=== PATIENT | male | born 1985 | race Caucasian/White ===

== ENCOUNTER 2018-02-16 16:22 | Emergency (ER) | payer SELFPAY ==
[~2018-02-16] VITALS: Ht 180.3 cm; Wt 97.5 kg
[2018-02-16] MEDS ORDERED: SODIUM CHLORIDE 0.9% 1000ML 1,000 ML IV STA (16:33)
[2018-02-16] MEDS ORDERED: ONDANSETRON HCL INJ 2 MG/ML VIAL IV STA (16:33)
[2018-02-16] MEDS ORDERED: MORPHINE SULFATE INJ 4 MG/ML INJ IV STA (16:33)
[2018-02-16 16:46] LABS: BASOPHILS # (AUTO) 0.1 (0.0-0.1); BASOPHILS % 0.7 % (0.0-1.0); EOSINOPHILS # (AUTO) 0.1 (0.0-0.4); EOSINOPHILS % 1.7 % (0.0-6.0); HEMATOCRIT 43.8 % (38.2-49.6); HEMOGLOBIN 15.6 g/dL (14.0-18.0); LYMPHOCYTES # (AUTO) 1.7 (1.0-3.2); LYMPHOCYTES % 22.2 % (18.0-39.1); MEAN CORPUSCULAR HEMOGLOBIN 31.4 pg (28-32); MEAN CORPUSCULAR HGB CONC 35.6 g/dL (31-35); MEAN CORPUSCULAR VOLUME 88.1 fL (81-99); MONOCYTES # (AUTO) 0.5 (0.2-0.8); MONOCYTES % 7.1 % (4.4-11.3); NEUTROPHILS # (AUTO) 5.2 (2.1-6.9); NEUTROPHILS % 68.2 % (38.7-80.0); PLATELET COUNT 187 x10e3/uL (140-360); RED BLOOD COUNT 4.97 x10e6/uL (4.3-5.7)
[2018-02-16 17:01] LABS: ALANINE AMINOTRANSFERASE 33 IU/L (0-55); ALBUMIN 4.4 g/dL (3.5-5.0); ALBUMIN/GLOBULIN RATIO 1.6 (0.8-2.0); ALKALINE PHOSPHATASE 62 IU/L (40-150); AMYLASE 42 U/L (25-125); ANION GAP 12.1 mmol/L (8-16); BLOOD UREA NITROGEN 5 mg/dL (7-26); BUN/CREATININE RATIO 5 (6-25); CALCIUM 9.7 mg/dL (8.4-10.2); CARBON DIOXIDE 27 mmol/L (22-29); CHLORIDE 105 mmol/L (98-107); CREATININE, SERUM 0.96 mg/dL (0.72-1.25); EST GLOMERULAR FILTRATION RATE > 60 ML/MIN (60-); GLUCOSE 108 mg/dL (74-118); LIPASE 62 U/L (8-78); POTASSIUM 4.1 mmol/L (3.5-5.1); SODIUM 140 mmol/L (136-145)
[2018-02-16 17:25] LABS: BILIRUBIN,URINE NEGATIVE (NEGATIVE); CLARITY,URINE CLEAR (CLEAR); COLOR,URINE YELLOW (YELLOW); KETONES,URINE NEGATIVE (NEGATIVE); LEUKOCYTE ESTERASE ,URINE NEGATIVE (NEGATIVE); NITRITE,URINE NEGATIVE (NEGATIVE); PROTEIN,URINE DIPSTICK NEGATIVE (NEGATIVE); URINE UROBILINOGEN 0.2 mg/dL (0.2 - 1)
--- NOTE | 2018-02-16 18:45 | Diagnostic Imaging Report ---
EXAMINATION: PA and lateral views of the chest. COMPARISON: None CLINICAL HISTORY: Stomach pain, low blood pressure DISCUSSION: Lines/tubes: None. Lungs: The lungs are well inflated and clear. There is no evidence of pneumonia or pulmonary edema. Pleura: There is no pleural effusion or pneumothorax. Heart and mediastinum: Cardiomediastinal silhouette is unremarkable. Pulmonary vasculature is normal. Bones and soft tissues: No acute bony abnormalities. IMPRESSION: No acute cardiopulmonary abnormalities. Signed by: Dr. Dong Chopra M.D. on 02/16/2018 6:42 PM
--- NOTE | 2018-02-16 18:50 | Diagnostic Imaging Report ---
EXAMINATION: CT of the abdomen and pelvis without contrast. TECHNIQUE: Spiral CT images of the abdomen and pelvis were performed from the lung bases to the lesser trochanters. No intravenous contrast was given due to history of iodine allergy. Oral dilute Gastrografin was given. Coronal and sagittal reformatted images were obtained. COMPARISON: None available. CLINICAL HISTORY:Right upper quadrant mid abdominal pain for 5 weeks DISCUSSION: ABSENCE OF INTRAVENOUS CONTRAST DECREASES SENSITIVITY FOR DETECTION OF FOCAL LESIONS AND VASCULAR PATHOLOGY. ABDOMEN/PELVIS: LOWER THORAX: Unremarkable. HEPATOBILIARY: No focal hepatic lesions. No intra or extrahepatic biliary ductal dilation. GALLBLADDER: No radio-opaque stones or sludge. No wall thickening. SPLEEN: Mild splenomegaly, measuring 13.9 cm in AP diameter PANCREAS: No focal masses or ductal dilatation. No peripancreatic inflammatory changes, free fluid or fluid collections ADRENALS: No adrenal nodules. KIDNEYS/URETERS: No hydronephrosis, renal or ureteral stones, or contour abnormalities. No significant perinephric stranding.. PELVIC ORGANS/BLADDER: Bladder is unremarkable. No wall thickening, focal lesion or bladder calculi. Multiple pelvic phleboliths. Prostate and seminal vesicles are unremarkable. PERITONEUM/RETROPERITONEUM: No free air or fluid. LYMPH NODES: No intra-abdominal,retroperitoneal, pelvic or inguinal lymphadenopathy. VESSELS: Unremarkable for noncontrast exam. GI TRACT: No bowel dilation or evidence of obstruction. No pericolonic inflammatory changes. Appendix is identified and normal in caliber. BONES AND SOFT TISSUES: No aggressive lytic lesions. Soft tissues are unremarkable. IMPRESSION: 1. No acute abdominopelvic abnormalities. 2. Mild splenomegaly. Signed by: Dr. Dong Chopra M.D. on 02/16/2018 6:47 PM
[2018-02-16 19:32] VITALS: BP 126/88
== END 2018-02-16 19:34 | disposition home or self-care (01) ==
LOC: ER 16:22
DX: R10.11 Right upper quadrant pain (principal); R10.33 Periumbilical pain; R11.0 Nausea
CPT/HCPCS: 36415; 71046; 74176; 80053; 81001; 82150; 83690; 85025; 87086; 99284; J7030; J2270; J2405

== ENCOUNTER 2018-12-13 17:33 | Emergency (ER) | payer BC ==
[~2018-12-13] VITALS: Ht 180.3 cm; Wt 97.5 kg
--- OUTSIDE RECORDS SUMMARY | 2018-12-13 17:36 | XMS REPORT ---
Author [facility] Address Unknown Phone Unavailable Care Team Providers Care Team Leader Surgery Name Role Phone Gideon BLANCO Unavailable Unavailable Problems This patient has no known problems. Allergies, Adverse Reactions, Alerts This patient has no known allergies or adverse reactions. Medications This patient has no known medications. Results Test Description Test Time Test Comments Text Results Atomic Results Result Comments CT ABDOMEN/PELVIS WO 2018-02-16 18:42:00 [place] [address] Patient Name: REY CARLSON MR #: [id number] : 1985 Age/Sex: 32/M Req #: [id number] Adm Physician: Ordered by: KISHOR MARLEY SALES REPRESENTATIVE ADDING MACHINES Report #: [id number] Location: ER Room/Bed: Procedure: [id number] CT/CT ABDOMEN/PELVIS WO Exam Date: 02/16/18 Exam Time: 5 REPORT STATUS: Signed EXAMINATION: CT of the abdomen and pelvis without contrast. TECHNIQUE: Spiral CT images of the abdomen and pelvis were performed from the lung bases to the lesser trochanters. No intravenous contrast was given due to history of iodine allergy. Oral dilute Gastrografin was given. Coronal and sagittal reformatted images were obtained. COMPARISON: None available. CLINICAL HISTORY:Right upper quadrant mid abdominal pain for 5 weeks DISCUSSION: ABSENCE OF INTRAVENOUS CONTRAST DECREASES SENSITIVITY FOR DETECTION OF FOCAL LESIONS AND VASCULAR PATHOLOGY. ABDOMEN/PELVIS: LOWER THORAX: Unremarkable. HEPATOBILIARY: No focal hepatic lesions. No intra or extrahepatic biliary ductal dilation. GALLBLADDER: No radio-opaque stones or sludge. No wall thickening. SPLEEN: Mild splenomegaly, measuring 13.9 cm in AP diameter PANCREAS: No focal masses or ductal dilatation. No peripancreatic inflammatory changes, free fluid or fluid collections ADRENALS: No adrenal nodules. KIDNEYS/URETERS: No hydronephrosis, renal or ureteral stones, or contour abnormalities. No significant perinephric stranding.. PELVIC ORGANS/BLADDER: Bladder is unremarkable. No wall thicke daniel, focal lesion or bladder calculi. Multiple pelvic phleboliths. Prostate and seminal vesicles are unremarkable. PERITONEUM/RETROPERITONEUM: No free air or fluid. LYMPH NODES: No intra-abdominal,retroperitoneal, pelvic or inguinal lymphadenopathy. VESSELS: Unremarkable for noncontrast exam. GI TRACT: No bowel dilation or evidence of obstruction. No pericolonic inflammatory changes. Appendix is identified and normal in caliber. BONES AND SOFT TISSUES: No aggressive lytic lesions. Soft tissues are unremarkable. IMPRESSION: 1. No acute abdominopelvic abnormalities. 2. Mild splenomegaly. Signed by: Dr. Aida Chopra M.D. on 02/16/2018 6:47 PM Dictated By: AIDA CHOPRA MD 46 Transcribed By: LAINEY on 02/16/181846 COPY TO: KISHOR MARLEY SALES REPRESENTATIVE ADDING MACHINES CHEST 2 VIEWS 2018-02-16 18:41:00 [place] [address] Patient Name: REY CARLSON MR #: [id number] : 1985 Age/Sex: 32/M Req #: [id number] Adm Physician: Ordered by: KISHOR MARLEY NP Report #: [id number] Location: ER Room/Bed: Procedure: [id number] DX/CHEST 2 VIEWS Exam Date: 02/16/18 Exam Time: 1817 REPORT STATUS: Signed EXAMINATION: PA and lateral views of the chest. COMPARISON: None CLINICAL HISTORY: Stomach pain, low blood pressure DISCUSSION: Lines/tubes: None. Lungs: The lungs are well inflated and clear. There is no evidence of pneumonia or pulmonary edema. Pleura: There is no pleural effusion or pneumothorax. Heart and mediastinum: Cardiomediastinal silhouette is unremarkable. Pulmonary vasculature is normal. Bones and soft tissues: No acute bony abnormalities. IMPRESSION: No acute cardiopulmonary abnormalities. Signed by: Dr. Aida Chopra M.D. on 02/16/2018 6:42 PM Dictated By: AIDA CHOPRA MD 41 Transcribed By: LAINEY on 02/16/181841 COPY TO: KISHOR MARLEY NP
== END 2018-12-13 19:32 | disposition home or self-care (01) ==
LOC: ER 17:33
DX: L03.031 Cellulitis of right toe (principal); R26.2 Difficulty in walking, not elsewhere classified
CPT/HCPCS: 99283

== ENCOUNTER 2019-04-27 19:44 | Emergency (ER) | payer BC ==
[~2019-04-27] VITALS: Ht 180.3 cm; Wt 97.5 kg
[2019-04-27] MEDS ORDERED: IPRATROPIUM BROMIDE 0.02% 2.5 ML NEB NEB STA (20:25)
[2019-04-27] MEDS ORDERED: ALBUTEROL SULF 0.083% NEB SOLN 3 ML NEB NEB STA (20:25)
[2019-04-27] MEDS ORDERED: DEXAMETHASONE SOD PHOS 10 MG/1 ML VIAL IM ONE (20:30)
[2019-04-27] MEDS ORDERED: ACETAMINOPHEN/CODEINE ELIX 120-12 MG/5 ML UDC PO ONE (20:30)
[2019-04-27] MEDS ORDERED: GUAIFENESIN/DEXTROMETHORPHAN LIQD 5 ML UDC PO PRN (21:00)
--- NOTE | 2019-04-27 21:10 | Diagnostic Imaging Report ---
EXAM: CHEST 2 VIEWS DATE: 04/27/2019 8:25 PM INDICATION: Cough ^ORDER PLACED BY ^[id number] ^[id number] ^Y COMPARISON: Chest x-ray, 02/16/2018 FINDINGS: Lines and tubes: None Heart size normal. No focal pulmonary opacity, pleural effusion or pneumothorax. Upper abdomen unremarkable. No acute bony abnormality. IMPRESSION: No evidence for acute disease. Signed by: Dr. Genaro Miguel M.D. on 04/27/2019 9:07 PM
== END 2019-04-27 21:08 | disposition home or self-care (01) ==
LOC: ER 19:44
DX: R05 Cough (principal); J20.9 Acute bronchitis, unspecified
CPT/HCPCS: 71046; 99283; J1100

== ENCOUNTER 2020-02-24 01:03 | Emergency (ER) | payer SELFPAY ==
[~2020-02-24] VITALS: Ht 180.3 cm; Wt 97.5 kg
[2020-02-24 01:27] LABS: BASOPHILS % 0.2 % (0.0-1.0); EOSINOPHILS # (AUTO) 0.1 (0.0-0.4); EOSINOPHILS % 1.3 % (0.0-6.0); HEMOGLOBIN 15.4 g/dL (14.0-18.0); LYMPHOCYTES # (AUTO) 2.6 (1.0-3.2); LYMPHOCYTES % 29.6 % (18.0-39.1); MEAN CORPUSCULAR HEMOGLOBIN 31.8 pg (28-32); MEAN CORPUSCULAR VOLUME 90.7 fL (81-99); MONOCYTES # (AUTO) 0.8 (0.2-0.8); MONOCYTES % 8.8 % (4.4-11.3); NEUTROPHILS # (AUTO) 5.2 (2.1-6.9); NEUTROPHILS % 59.9 % (38.7-80.0); PLATELET COUNT 231 x10e3/uL (140-360); RED BLOOD COUNT 4.85 x10e6/uL (4.3-5.7); RED CELL DISTRIBUTION WIDTH 13.2 % (11.7-14.4)
[2020-02-24 01:29] LABS: AMPHETAMINES SCREEN,URINE NEGATIVE (NEGATIVE); BENZODIAZEPINES SCREEN,URINE NEGATIVE (NEGATIVE); BILIRUBIN,URINE NEGATIVE (NEGATIVE); CLARITY,URINE CLEAR (CLEAR); COLOR,URINE YELLOW (YELLOW); KETONES,URINE NEGATIVE (NEGATIVE); LEUKOCYTE ESTERASE ,URINE NEGATIVE (NEGATIVE); NITRITE,URINE NEGATIVE (NEGATIVE); PHENCYCLIDINE SCREEN,URINE NEGATIVE (NEGATIVE); PROTEIN,URINE DIPSTICK NEGATIVE (NEGATIVE); URINE UROBILINOGEN 0.2 mg/dL (0.2 - 1)
[2020-02-24 01:34] LABS: BACTERIA,URINE RARE /HPF; EPITHELIAL CELLS,URINE RARE /LPF; WBC,URINE (MAN) 0-5 /HPF (0-5)
--- NOTE | 2020-02-24 01:44 | Emergency Department Note ---
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 Historian: Patient Arrival Mode: Car Supervisor Decorating Required: No Onset (how long ago): hour(s) (1) Location: CHEST Quality: DISCOMFORT, SOB Radiation: Reports non-radiation Severity: moderate Onset quality: sudden Duration (how long): hour(s) (1) Timing of current episode: constant Progression: unchanged Chronicity: new Context: Reports other (USE CBD OIL ONE HOUR PRIOT TO SYMPTOMS STARTING); Denies recent illness, Denies recent surgery, Denies trauma/injury Relieving factors: none Exacerbating factors: none Associated symptoms: Reports denies other symptoms Past Medical/Family History Physician Review I have reviewed the patient's past medical and family history. Any updates have been documented here. Past Medical History Recent Fever: No Clinical Suspicion of Infectio: No New/Unexplained Change in Ment: No Past Medical History: None Past Surgical History: None Social History Smoking Cessation: Never Smoker Alcohol Use: Occasional Any Illegal Drug Use: No Family History Family history of heart diseas: No Other Last Tetanus: UTD Review of Systems Review of Systems Constitutional: Reports no symptoms EENTM: Reports no symptoms Cardiovascular: Reports as per HPI Respiratory: Reports as per HPI Gastrointestinal: Reports no symptoms Genitourinary: Reports no symptoms Musculoskeletal: Reports no symptoms Integumentary: Reports no symptoms Neurological: Reports no symptoms Psychological: Reports no symptoms Endocrine: Reports no symptoms Hematological/Lymphatic: Reports no symptoms Physical Exam Related Data Allergies: Coded Allergies: iodine (Verified Allergy, Severe, THROAT SWELLS, 12/13/18) peanut (Verified Allergy, Severe, THROAT SWELLS, 04/27/19) shellfish derived (Verified Allergy, Severe, SEAFOOD-THROAT SWELLING, 04/27/19) Uncoded Allergies: SEAFOOD (Allergy, Severe, THROAT SWELLS, 11/10/09) Triage Vital Signs Vital Signs Date Time Temp Pulse Resp B/P (MAP) Pulse Ox O2 Delivery O2 Flow Rate FiO2 02/24/20 01:07 99.0 135 20 180/104 100 Room Air Vital signs reviewed: Yes Physical Exam CONSTITUTIONAL Constitutional: Present well-developed, Present well-nourished, Present other (ANXIOUS) HENT HENT: Present normocephalic, Present atraumatic, Present oropharynx clear/moist, Present nose normal HENT L/R: Present left ext ear normal, Present right ext ear normal EYES Eyes: Reports PERRL, Reports conjunctivae normal NECK Neck: Present ROM normal PULMONARY Pulmonary: Present effort normal, Present breath sounds normal CARDIOVASCULAR Cardiovascular: Present regular rhythm, Present heart sounds normal, Present capillary refill normal, Present tachycardia (110) GASTROINTESTINAL Abdominal: Present soft, Present nontender, Present bowel sounds normal GENITOURINARY Genitourinary: Present exam deferred SKIN Skin: Present warm, Present dry MUSCULOSKELETAL Musculoskeletal: Present ROM normal NEUROLOGICAL Neurological: Present alert, Present oriented x 3, Present no gross motor or sensory deficits PSYCHOLOGICAL Psychological: Present mood/affect normal, Present judgement normal Results Laboratory Result Diagram: 02/24/20 0115 Laboratory Laboratory Tests Test 02/24/20 01:17 02/24/20 01:15 Urine Color Yellow (YELLOW) Urine Clarity Clear (CLEAR) Urine pH 7 (5 - 7) Urine Specific [place] 1.020 (1.010-1.025) Urine Protein Negative (NEGATIVE) Urine Glucose (UA) Negative (NEGATIVE) Urine Ketones Negative (NEGATIVE) Urine Blood Negative (NEGATIVE) Urine Nitrite Negative (NEGATIVE) Urine Bilirubin Negative (NEGATIVE) Urine Urobilinogen 0.2 mg/dL (0.2 - 1) Urine Leukocyte Esterase Negative (NEGATIVE) Urine RBC None /HPF (0-5) Urine WBC 0-5 /HPF (0-5) Urine Epithelial Cells Rare /LPF (NONE) Urine Bacteria Rare /HPF (NONE) Urine Opiates Screen Negative (NEGATIVE) Urine Methadone Screen Negative (NEGATIVE) Urine Barbiturates Screen Negative (NEGATIVE) Urine Phencyclidine Screen Negative (NEGATIVE) Urine Amphetamines Screen Negative (NEGATIVE) Urine Methamphetamines Screen Negative (NEGATIVE) Urine Benzodiazepines Screen Negative (NEGATIVE) Urine Cocaine Screen Negative (NEGATIVE) Urine Cannabinoids Screen Negative (NEGATIVE) White Blood Count 8.65 x10e3/uL (4.8-10.8) Red Blood Count 4.85 x10e6/uL (4.3-5.7) Hemoglobin 15.4 g/dL (14.0-18.0) Hematocrit 44.0 % (38.2-49.6) Mean Corpuscular Volume 90.7 fL (81-99) Mean Corpuscular Hemoglobin 31.8 pg (28-32) Mean Corpuscular Hemoglobin Concent 35.0 g/dL (31-35) Red Cell Distribution Width 13.2 % (11.7-14.4) Platelet Count 231 x10e3/uL (140-360) Neutrophils (%) (Auto) 59.9 % (38.7-80.0) Lymphocytes (%) (Auto) 29.6 % (18.0-39.1) Monocytes (%) (Auto) 8.8 % (4.4-11.3) Eosinophils (%) (Auto) 1.3 % (0.0-6.0) Basophils (%) (Auto) 0.2 % (0.0-1.0) Neutrophils # (Auto) 5.2 (2.1-6.9) Lymphocytes # (Auto) 2.6 (1.0-3.2) Monocytes # (Auto) 0.8 (0.2-0.8) Eosinophils # (Auto) 0.1 (0.0-0.4) Basophils # (Auto) 0.0 (0.0-0.1) Absolute Immature Granulocyte (auto 0.02 x10e3/uL (0-0.1) D-Dimer Quantitative (PE/DVT) 0.34 ug/mLFEU (0.00-0.45) Sodium Level 142 mmol/L (136-145) Potassium Level 3.6 mmol/L (3.5-5.1) Chloride Level 104 mmol/L (98-107) Carbon Dioxide Level 25 mmol/L (22-29) Anion Gap 16.6 mmol/L (8-16) Blood Urea Nitrogen 5 mg/dL (7-26) Creatinine 1.06 mg/dL (0.72-1.25) Estimat Glomerular Filtration Rate > 60 ML/MIN (60-) BUN/Creatinine Ratio 5 (6-25) Glucose Level 122 mg/dL (74-118) Calcium Level 9.5 mg/dL (8.4-10.2) Total Bilirubin 0.9 mg/dL (0.2-1.2) Aspartate Amino Transf (AST/SGOT) 27 IU/L (5-34) Alanine Aminotransferase (ALT/SGPT) 43 IU/L (0-55) Alkaline Phosphatase 65 IU/L (40-150) Creatine Kinase 175 IU/L (30-200) Creatine Kinase MB 1.10 ng/mL (0-5.0) Troponin I < 0.001 ng/mL (0-0.300) Total Protein 7.6 g/dL (6.5-8.1) Albumin 4.9 g/dL (3.5-5.0) Globulin 2.7 g/dL (2.3-3.5) Albumin/Globulin Ratio 1.8 (0.8-2.0) Laboratory Tests Test 02/24/20 01:17 02/24/20 01:15 Urine Color Yellow (YELLOW) Urine Clarity Clear (CLEAR) Urine pH 7 (5 - 7) Urine Specific [place] 1.020 (1.010-1.025) Urine Protein Negative (NEGATIVE) Urine Glucose (UA) Negative (NEGATIVE) Urine Ketones Negative (NEGATIVE) Urine Blood Negative (NEGATIVE) Urine Nitrite Negative (NEGATIVE) Urine Bilirubin Negative (NEGATIVE) Urine Urobilinogen 0.2 mg/dL (0.2 - 1) Urine Leukocyte Esterase Negative (NEGATIVE) Urine RBC None /HPF (0-5) Urine WBC 0-5 /HPF (0-5) Urine Epithelial Cells Rare /LPF (NONE) Urine Bacteria Rare /HPF (NONE) Urine Opiates Screen Negative (NEGATIVE) Urine Methadone Screen Negative (NEGATIVE) Urine Barbiturates Screen Negative (NEGATIVE) Urine Phencyclidine Screen Negative (NEGATIVE) Urine Amphetamines Screen Negative (NEGATIVE) Urine Methamphetamines Screen Negative (NEGATIVE) Urine Benzodiazepines Screen Negative (NEGATIVE) Urine Cocaine Screen Negative (NEGATIVE) Urine Cannabinoids Screen Negative (NEGATIVE) White Blood Count 8.65 x10e3/uL (4.8-10.8) Red Blood Count 4.85 x10e6/uL (4.3-5.7) Hemoglobin 15.4 g/dL (14.0-18.0) Hematocrit 44.0 % (38.2-49.6) Mean Corpuscular Volume 90.7 fL (81-99) Mean Corpuscular Hemoglobin 31.8 pg (28-32) Mean Corpuscular Hemoglobin Concent 35.0 g/dL (31-35) Red Cell Distribution Width 13.2 % (11.7-14.4) Platelet Count 231 x10e3/uL (140-360) Neutrophils (%) (Auto) 59.9 % (38.7-80.0) Lymphocytes (%) (Auto) 29.6 % (18.0-39.1) Monocytes (%) (Auto) 8.8 % (4.4-11.3) Eosinophils (%) (Auto) 1.3 % (0.0-6.0) Basophils (%) (Auto) 0.2 % (0.0-1.0) Neutrophils # (Auto) 5.2 (2.1-6.9) Lymphocytes # (Auto) 2.6 (1.0-3.2) Monocytes # (Auto) 0.8 (0.2-0.8) Eosinophils # (Auto) 0.1 (0.0-0.4) Basophils # (Auto) 0.0 (0.0-0.1) Absolute Immature Granulocyte (auto 0.02 x10e3/uL (0-0.1) Lab results reviewed: Yes Imaging Imaging results reviewed: Yes Impressions Procedure: [id number] DX/CHEST SINGLE (PORTABLE) Exam Date: 02/24/20 Exam Time: 0205 REPORT STATUS: Signed EXAMINATION: CHEST SINGLE (PORTABLE) INDICATION: CHEST PAIN COMPARISON: Radiograph dated 04/27/2019. FINDINGS: TUBES and LINES: None. LUNGS: Normal lung volumes. Lungs are clear. No consolidations. PLEURA: No pleural effusion or pneumothorax. HEART AND MEDIASTINUM: The cardiomediastinal silhouette is unremarkable. BONES AND SOFT TISSUES: No acute osseous lesion. Soft tissues are unremarkable. UPPER ABDOMEN: No free air under the diaphragm. IMPRESSION: No acute thoracic abnormality. Signed by: Aaron Lerma MD on 02/24/2020 2:28 AM Dictated By: AARON LERMA MD 7 Transcribed By: LAINEY on 02/24/20227 COPY TO: ERYN SINGH MD~ Procedures 12 Lead ECG Interpretation ECG Interpretation : ECG: ECG 1 Supervisor Decorating: Interpreted by ED physician Date: Feb 24, 2020 Time: 01:21 Rate: tachycardia BPM: 109 QRS axis: normal ST segments normal: Yes T waves normal: Yes Other findings: no other findings Clinical Impression: non-specific ECG Assessment & Plan Medical Decision Making MDM PT WITH CHEST DISCOMFORT AND SOB AFTER TAKING CBD OIL CBC, CMP, EKG, UA, UDS, CARDIAC ENZYMES, CXR, D-DIMER ORDERED TO EVAL FOR MYOCARDIAL INFARCTION, UTI, DRUG USE, PULMONARY EMBOLISM, PNEUMOTHORAX, ELECTROLYTE ABNORMALITY NS I LITER IV BOLUS ORDERED Reassessment Reassessment time: 02:55 Reassessment PT FEELING A LITTLE BETTER Assessment & Plan Final Impression: (1) Adverse reaction to cannabis Depart Disposition: HOME, SELF-CARE Last Vital Signs Date Time Temp Pulse Resp B/P (MAP) Pulse Ox O2 Delivery O2 Flow Rate FiO2 02/24/20 01:07 99.0 135 20 180/104 100 Room Air ERYN SINGH MD Feb 24, 2020 01:44
[2020-02-24 01:46] LABS: ALANINE AMINOTRANSFERASE 43 IU/L (0-55); ALBUMIN 4.9 g/dL (3.5-5.0); ALBUMIN/GLOBULIN RATIO 1.8 (0.8-2.0); ALKALINE PHOSPHATASE 65 IU/L (40-150); ANION GAP 16.6 mmol/L (8-16); BLOOD UREA NITROGEN 5 mg/dL (7-26); BUN/CREATININE RATIO 5 (6-25); CALCIUM 9.5 mg/dL (8.4-10.2); CARBON DIOXIDE 25 mmol/L (22-29); CHLORIDE 104 mmol/L (98-107); CREATINE KINASE 175 IU/L (30-200); CREATININE, SERUM 1.06 mg/dL (0.72-1.25); EST GLOMERULAR FILTRATION RATE > 60 ML/MIN (60-); GLUCOSE 122 mg/dL (74-118); POTASSIUM 3.6 mmol/L (3.5-5.1); SODIUM 142 mmol/L (136-145)
[2020-02-24] MEDS ORDERED: SODIUM CHLORIDE 0.9% 1000ML 1,000 ML ONE (02:20)
--- NOTE | 2020-02-24 02:31 | Diagnostic Imaging Report ---
EXAMINATION: CHEST SINGLE (PORTABLE) INDICATION: CHEST PAIN COMPARISON: Radiograph dated 04/27/2019. FINDINGS: TUBES and LINES: None. LUNGS: Normal lung volumes. Lungs are clear. No consolidations. PLEURA: No pleural effusion or pneumothorax. HEART AND MEDIASTINUM: The cardiomediastinal silhouette is unremarkable. BONES AND SOFT TISSUES: No acute osseous lesion. Soft tissues are unremarkable. UPPER ABDOMEN: No free air under the diaphragm. IMPRESSION: No acute thoracic abnormality. Signed by: Von Blanton MD on 02/24/2020 2:28 AM
[2020-02-24 03:24] VITALS: BP 115/79
--- OUTSIDE RECORDS SUMMARY | 2020-02-24 10:48 | XMS REPORT | Continuity of Care Document ---
Author Author [facility] t Organization [facility] Address [address] [place] [address] [place] [id number] Phone Unavailable Care Team Providers Care Tool Or Die Drawing Checker Name Role Phone NO, PCP PCP Unavailable Yana SINGH Attphys Unavailable VISHAL MEI Attphys Unavailable Gideon BLANCO Attphys Unavailable Payers Payer Name Policy Type Policy Number Effective Date Expiration Date S kiana [employer] [facility] [id number] 2017 00:00:00 [facility] Self Pay NA [facility] Problems Condition Name Condition Details Condition Category Status Onset Date Resolution Date Last Treatment Date Treating Clinician Comments Source Adverse effect of cannabis Problem Active [facility] Allergies, Adverse Reactions, Alerts Allergy Name Allergy Type Status Severity Reaction(s) Onset Date Inacti ve Date Treating Clinician Comments Source Peanuts Allergy to substance Active Severe THROAT SWELLS 2019-04-27 00 :00:00 [facility] shellfish derived Allergy to substance Active Severe SEAFOOD- THROAT SWELLING 2019-04-27 00:00:00 [facility] Iodine Allergy to substance Active Severe THROAT SWELLS 2018-12-13 00 :00:00 [facility] SEAFOOD Allergy to substance Active Severe THROAT SWELLS 2009-11-10 00 :00:00 [facility] Social History Social Habit Start Date Stop Date Quantity Comments Source Sex Assigned At 1985 00:00:00 1985 00:00:00 Male [facility] Medications This patient has no known medications. Vital Signs Vital Name Observation Time Observation Value Comments Source Weight 2020-02-24 01:07:00 215 [lb_av] [facility] BMI (Body Mass Index) 2020-02-24 01:07:00 30.0 kg/m2 [facility] Procedures This patient has no known procedures. Plan of Care Planned Activity Planned Date Details Comments Source Instructions Food Allergy - Adult [facility] Instructions Chest Pain - Noncardiac [facility] Encounters Start Date/Time End Date/Time Encounter Type Admission Type Attendi [facility] Care Department Encounter ID Source 2020-02-24 01:33:00 2020-02-24 03:30:00 Departed Emergency Room 1 ERYN SINGH [facility] [id number] I [facility] 2019-04-27 19:44:00 2019-04-27 21:08:00 Departed Emergency Room 1 VISHAL MEI [facility] [id number] [facility] 2018-12-13 17:33:00 2018-12-13 19:32:00 Departed Emergency Room [facility] [id number] [facility] 2018-02-16 16:22:00 2018-02-16 19:34:00 Departed Emergency Room 1 ARACELIS BLANCO [facility] [id number] [facility] Results Test Description Test Time Test Comments Results Result Comments Source CHEST SINGLE (PORTABLE) 2020-02-24 02:26:00 [place] [address] Patient Name: REY CARLSON MR #: [id number] : 1985 Age/Sex: 34/M Req #: [id number] Adm Physician: Ordered by: ERYN SINGH MD Report #: [id number] Location: ER Room/Bed: Procedure: [id number] DX/CHEST SINGLE (PORTABLE) Exam Date: 02/24/20 Exam Time: 0205 REPORT STATUS: Signed EXAMINATION: CHEST SINGLE (PORTABLE) INDICATION: CHEST PAIN COMPARISON: Radiograph dated 04/27/2019. FINDINGS: TUBES and LINES: None. LUNGS: Normal lung volumes. Lungs are clear. No consolidations. PLEURA: No pleural effusion or pneumothorax. HEART AND MEDIASTINUM: The cardiomediastinal silhouette is unremarkable. BONES AND SOFT TISSUES: No acute osseous lesion. Soft tissues are unremarkable. UPPER ABDOMEN: No free air under the diaphragm. IMPRESSION: No acute thoracic abnormality. Signed by: Aaron Lerma MD on 02/24/2020 2:28 AM Dictated By: AARON LERMA MD 7 Transcribed By: LAINEY on 02/24/20227 COPY TO: ERYN SINGH MD Urine color determination 2020-02-24 01:17:00 Test Item Urine Color (test code = 5778-6) YELLOW YELLOW [facility] mbvslkq9684-15-46 01:17:00* Test Item Value Reference Range Interpretation Comments Urine Clarity (test code = 69404-0) CLEAR CLEAR [facility] Urine by Test strip 2020-02-24 01:17:00* Test Item Value Reference Range Interpretation Comments Urine Specific Platter (test code = 5811-5) 1.020 1.010-1.02 5 [facility] pH measurement by automated test kisgz6040-91-47 01:17:00* Test Item Value Reference Range Interpretation Comments Urine pH (test code = 47170-0) 7 5-7 [facility] leukocyte esterase detection by zivqokrd5971-03-15 01:17:00* Test Item Value Reference Range Interpretation Comments Urine Leukocyte Esterase (test code = 5799-2) NEGATIVE NEGATIVE [facility] nitrite luovprggg7696-47-04 01:17:00* Test Item Value Reference Range Interpretation Comments Urine Nitrite (test code = 38409-5) NEGATIVE NEGATIVE [facility] protein measurement by test strip (mass/volume)2020-02-24 01:17:00* Test Item Value Reference Range Interpretation Comments Urine Protein (test code = 5804-0) NEGATIVE NEGATIVE [facility] glucose xewxqgfur6607-19-46 01:17:00* Test Item Value Reference Range Interpretation Comments Urine Glucose (UA) (test code = 2349-9) NEGATIVE NEGATIVE [facility] ketones detection by automated test lspwx6534-83-43 01:17:00* Test Item Value Reference Range Interpretation Comments Urine Ketones (test code = 85038-4) NEGATIVE NEGATIVE [facility] opiates screening rdah3449-98-51 01:17:00* Test Item Value Reference Range Interpretation Comments Urine Opiates Screen (test code = 25712-0) NEGATIVE NEGATIVE ALL TESTS PERFORMED MANUALLY ON [employer] TOX/SEE TESTThe Hospitals of [facility] CampusBarbiturates screen, ladfg3790-33-11 01:17:00* Test Item Value Reference Range Interpretation Comments Urine Barbiturates Screen (test code = 686349056) NEGATIVE NEGA TIVE [facility] CampusUrine phencyclidine detection by screening uzwgky2031-36-51 01:17:00* Test Item Value Reference Range Interpretation Comments Urine Phencyclidine Screen (test code = 36932-4) NEGATIVE NEGAT SHANNAN [facility] CampusUrine amphetamines detection by screen method > 1000 ng/bT9670-94-43 01:17:00* Test Item Value Reference Range Interpretation Comments Urine Amphetamines Screen (test code = 44741-2) NEGATIVE NEGATI VE [facility] CampusFluoroscopic procedure less than one hour iuvdykup8233-50-43 01:17:00* Test Item Value Reference Range Interpretation Comments Urine Methamphetamines Screen (test code = Urine Metha mphetamines Screen) NEGATIVE NEGATIVE [facility] CampusUrine benzodiazepines detection by screening bcmhbn2605-89-60 01:17:00* Test Item Value Reference Range Interpretation Comments Urine Benzodiazepines Screen (test code = 16696-1) NEGATIVE NEG ATIVE [facility] CampusUrine cocaine measurement (mass/volume) 2020-02-24 01:17:00* Test Item Value Reference Range Interpretation Comments Urine Cocaine Screen (test code = 3398-5) NEGATIVE NEGATIVE [facility] CampusUrine cannabinoids detection by screening svjbtd3550-29-92 01:17:00* Test Item Value Reference Range Interpretation Comments Urine Cannabinoids Screen (test code = 68929-8) NEGATIVE NEGATI VE THESE RESULTS ARE FOR MEDICAL TREATMENT ONLYTHIS REPORT CONTAINS UNCONFIR MED SCREENING RESULTS*POSITIVE RESULTS WILL BE CONFIRMED BY REFERENCE LAB UPON R EQUEST CUT-OFFDRUG CLASS CONCENTRATION ng/mLAmphetamines 1000Methamphetamines 1000Cocaine 300Opiate 300Phencyc lidine 25Cannabinoid 50Barbiturates 300Benzodiazepine 300Methadone 300[facility] CampusUrine methadone eoptes0917-94-28 01:17:00* Test Item Value Reference Range Interpretation Comments Urine Methadone Screen (test code = 58029-9) NEGATIVE NEGATIVE THESE RESULTS ARE FOR MEDICAL TREATMENT ONLYTHIS REPORT CONTAINS UNCONFIR MED SCREENING RESULTS*POSITIVE RESULTS WILL BE CONFIRMED BY REFERENCE LAB UPON R EQUEST CUT-OFFDRUG CLASS CONCENTRATION ng/mLAmphetamines 1000Methamphetamines 1000Cocaine Metabolite 300Opiate 300Phencyc lidine 25Cannabinoid 50Barbiturates 300Benzodiazepine 300Methadone 300[facility] CampusUrine urobilinogen measurement by test strip (mass/volume)2020-02-24 01:17:00* Test Item Value Reference Range Interpretation Comments Urine Urobilinogen (test code = 55460-1) 0.2 0.2-1 [facility] CampusUrine total bilirubin measurement (mass/volume)2020-02-24 01:17:00* Test Item Value Reference Range Interpretation Comments Urine Bilirubin (test code = 1978-6) NEGATIVE NEGATIVE [facility] CampusUrine erythrocytes vrwbpktqh3290-56-75 01:17:00* Test Item Value Reference Range Interpretation Comments Urine Blood (test code = 89563-2) NEGATIVE NEGATIVE [facility] CampusAutomated urine sediment leukocyte count by microscopy (number/high power field)2020-02-24 01:17:00* Test Item Value Reference Range Interpretation Comments Urine WBC (test code = 5821-4) 0-5 0-5 [facility] CampusErythrocytes detection in urine sediment by light rfciiakuwq8995-12-56 01:17:00* Test Item Value Reference Range Interpretation Comments Urine RBC (test code = 17999-1) NONE 0-5 [facility] CampusBacteria detection in urine sediment by light imsuvanaqb1996-21-80 01:17:00* Test Item Value Reference Range Interpretation Comments Urine Bacteria (test code = 12876-9) RARE NONE [facility] CampusEpithelial cells detection in urine sediment by light enfxquxoct6745-41-78 01:17:00* Test Item Value Reference Range Interpretation Comments Urine Epithelial Cells (test code = 35662-7) RARE NONE [facility] CampusBlood leukocytes automated count (number/volume)2020-02-24 01:15:00* Test Item Value Reference Range Interpretation Comments White Blood Count (test code = 6690-2) 8.65 4.8-10.8 [facility] CampusBlood erythrocytes automated count (number/volume)2020-02-24 01:15:00* Test Item Value Reference Range Interpretation Comments Red Blood Count (test code = 789-8) 4.85 4.3-5.7 [facility] CampusBlood hemoglobin measurement (moles/volume)2020-02-24 01:15:00* Test Item Value Reference Range Interpretation Comments Hemoglobin (test code = 25703-2) 15.4 14.0-18.0 [facility] CampusAutomated blood hematocrit (volume fraction)2020-02-24 01:15:00* Test Item Value Reference Range Interpretation Comments Hematocrit (test code = 4544-3) 44.0 38.2-49.6 [facility] CampusAutomated erythrocyte mean corpuscular vofrfr1397-00-81 01:15:00* Test Item Value Reference Range Interpretation Comments Mean Corpuscular Volume (test code = 787-2) 90.7 81-99 [facility] CampusAutomated erythrocyte mean corpuscular hemoglobin (mass per erythrocyte)2020-02-24 01:15:00* Test Item Value Reference Range Interpretation Comments Mean Corpuscular Hemoglobin (test code = 785-6) 31.8 28-32 [facility] CampusAutomated erythrocyte mean corpuscular hemoglobin concentration measurement (mass/volume)2020-02-24 01:15:00* Test Item Value Reference Range Interpretation Comments Mean Corpuscular Hemoglobin Concent (test code = 786-4) 35.0 31-35 [facility] CampusRDW UgcCc-Uzd3005-00-18 01:15:00* Test Item Value Reference Range Interpretation Comments Red Cell Distribution Width (test code = 43066-5) 13.2 11.7 -14.4 [facility] CampusAutomated blood platelet count (count/volume)2020-02-24 01:15:00* Test Item Value Reference Range Interpretation Comments Platelet Count (test code = 777-3) 231 140-360 [facility] CampusAutomated blood segmented neutrophil count as percentage of total sqofjtuzho7772-74-97 01:15:00* Test Item Value Reference Range Interpretation Comments Neutrophils (%) (Auto) (test code = 65267-8) 59.9 38.7-80.0 [facility] CampusAutomated blood lymphocyte count as percentage ot total zngysaokho4385-73-28 01:15:00* Test Item Value Reference Range Interpretation Comments Lymphocytes (%) (Auto) (test code = 736-9) 29.6 18.0-39.1 [facility] CampusAutomated blood monocyte count as percentage of total zvqyqhpify3715-43-75 01:15:00* Test Item Value Reference Range Interpretation Comments Monocytes (%) (Auto) (test code = 5905-5) 8.8 4.4-11.3 [facility] CampusAutomated blood eosinophil count as percentage of total gbkavvxlpj5664-99-07 01:15:00* Test Item Value Reference Range Interpretation Comments Eosinophils (%) (Auto) (test code = 713-8) 1.3 0.0-6.0 [facility] CampusAutomated blood basophil count as percentage of total rgflendixz9666-80-64 01:15:00* Test Item Value Reference Range Interpretation Comments Basophils (%) (Auto) (test code = 706-2) 0.2 0.0-1.0 [facility] CampusFluoroscopic procedure less than one hour oyeoxrtw3087-64-05 01:15:00* Test Item Value Reference Range Interpretation Comments IM GRANULOCYTES % (test code = IM GRANULOCYTES %) 0.2 0.0- 1.0 [facility] CampusAutomated blood neutrophil count 2020-02-24 01:15:00* Test Item Value Reference Range Interpretation Comments Neutrophils # (Auto) (test code = 751-8) 5.2 2.1-6.9 [facility] CampusBlood lymphocytes count (number/volume) 2020-02-24 01:15:00* Test Item Value Reference Range Interpretation Comments Lymphocytes # (Auto) (test code = 58422-5) 2.6 1.0-3.2 [facility] CampusBlood monocytes automated count (number/volume)2020-02-24 01:15:00* Test Item Value Reference Range Interpretation Comments Monocytes # (Auto) (test code = 742-7) 0.8 0.2-0.8 [facility] CampusAutomated blood eosinophil count 2020-02-24 01:15:00* Test Item Value Reference Range Interpretation Comments Eosinophils # (Auto) (test code = 711-2) 0.1 0.0-0.4 [facility] CampusAutomated blood basophil count (count/volume)2020-02-24 01:15:00* Test Item Value Reference Range Interpretation Comments Basophils # (Auto) (test code = 704-7) 0.0 0.0-0.1 [facility] CampusFluoroscopic procedure less than one hour ntydoavc9667-14-94 01:15:00* Test Item Value Reference Range Interpretation Comments Absolute Immature Granulocyte (auto (gerardo t code = Absolute Immature Granulocyte (auto) 0.02 0-0.1 [facility] CampusFibrin D-dimer DDU measurement in platelet poor plasma (mass/volume)2020-02-24 01:15:00* Test Item Value Reference Range Interpretation Comments D-Dimer Quantitative (PE/DVT) (test code = 28657-5) 0.34 0. 00-0.45 [facility] Systemer[facility] or plasma sodium measurement (moles/volume)2020-02-24 01:15:00* Test Item Value Reference Range Interpretation Comments Sodium Level (test code = 2951-2) 142 136-145 [facility] Systemer[facility] or plasma potassium measurement (moles/volume)2020-02-24 01:15:00* Test Item Value Reference Range Interpretation Comments Potassium Level (test code = 2823-3) 3.6 3.5-5.1 [facility] Systemer[facility] or plasma chloride measurement (moles/volume)2020-02-24 01:15:00* Test Item Value Reference Range Interpretation Comments Chloride Level (test code = 2075-0) 104 98-107 [facility] Systemer[facility] or plasma carbon dioxide, total measurement (moles/volume)2020-02-24 01:15:00* Test Item Value Reference Range Interpretation Comments Carbon Dioxide Level (test code = 2028-9) 25 22-29 [facility] System[facility] or plasma anion swb0272-41-74 01:15:00* Test Item Value Reference Range Interpretation Comments Anion Gap (test code = 90463-4) 16.6 8-16 [facility] or plasma urea nitrogen measurement (mass/volume)2020-02-24 01:15:00* Test Item Value Reference Range Interpretation Comments Blood Urea Nitrogen (test code = 3094-0) 5 7-26 [facility]er[facility] or plasma creatinine measurement (mass/volume)2020-02-24 01:15:00* Test Item Value Reference Range Interpretation Comments Creatinine (test code = 2160-0) 1.06 0.72-1.25 [facility] Systemer[facility] or plasma urea nitrogen/creatinine mass sgdkp2928-12-82 01:15:00* Test Item Value Reference Range Interpretation Comments BUN/Creatinine Ratio (test code = 3097-3) 5 6-25 [facility] CampusEstimated glomerular filtration rate (GFR) zzgwlmuscprwp7399-32-05 01:15:00* Test Item Value Reference Range Interpretation Comments Estimat Glomerular Filtration Rate (test code = 730239641) > 60 >60 Ranges were taken from the National Kidney Disease Education Program and the [facility] literature.Reference ranges:60 or greater: Zymmfy22-44 ( for 3 consecutive months): Chronic kidney disease 15 or less: Kidney failureThe Hospitals of [facility] Memorial CampusGlucose imhrdlzkgvh3438-14-64 01:15:00* Test Item Value Reference Range Interpretation Comments Glucose Level (test code = ESL9527) 122 74-118 [facility] Systemer[facility] or plasma calcium measurement (mass/volume)2020-02-24 01:15:00* Test Item Value Reference Range Interpretation Comments Calcium Level (test code = 49448-6) 9.5 8.4-10.2 [facility] Systemer[facility] or plasma total bilirubin measurement (mass/volume)2020-02-24 01:15:00* Test Item Value Reference Range Interpretation Comments Total Bilirubin (test code = 1975-2) 0.9 0.2-1.2 [facility] CampusFluoroscopic procedure less than one hour leoqtndj5753-13-03 01:15:00* Test Item Value Reference Range Interpretation Comments Aspartate Amino Transf (AST/SGOT) (test code = Aspartate Amino Transf (AST/SGOT)) 27 5-34 [facility] Systemer[facility] or plasma alanine aminotransferase measurement (enzymatic activity/volume)2020-02-24 01:15:00* Test Item Value Reference Range Interpretation Comments Alanine Aminotransferase (ALT/SGPT) (test code = 1742-6) 43 0-55 [facility] Systemer[facility] or plasma protein measurement (mass/volume)2020-02-24 01:15:00* Test Item Value Reference Range Interpretation Comments Total Protein (test code = 2885-2) 7.6 6.5-8.1 [facility] Systemer[facility] or plasma albumin measurement (mass/volume)2020-02-24 01:15:00* Test Item Value Reference Range Interpretation Comments Albumin (test code = 1751-7) 4.9 3.5-5.0 [facility] CampusPlasma globulin measurement (mass/volume) 2020-02-24 01:15:00* Test Item Value Reference Range Interpretation Comments Globulin (test code = 59726-4) 2.7 2.3-3.5 [facility] System[facility] or plasma albumin/globulin mass tjigu3378-08-13 01:15:00* Test Item Value Reference Range Interpretation Comments Albumin/Globulin Ratio (test code = 1759-0) 1.8 0.8-2.0 [facility] or plasma alkaline phosphatase measurement (enzymatic activity/volume)2020-02-24 01:15:00* Test Item Value Reference Range Interpretation Comments Alkaline Phosphatase (test code = 6768-6) 65 40-150 [facility] System[facility] or plasma creatine kinase measurement (enzymatic activity/volume)2020-02-24 01:15:00* Test Item Value Reference Range Interpretation Comments Creatine Kinase (test code = 2157-6) 175 30-200 [facility] or plasma creatine kinase MB measurement (mass/volume)2020-02-24 01:15:00* Test Item Value Reference Range Interpretation Comments Creatine Kinase MB (test code = 26060-5) 1.10 0-5.0 [facility] CampusTroponin I measurement by highly sensitive enzyme ofsfaqwocsz9015-79-45 01:15:00* Test Item Value Reference Range Interpretation Comments Troponin I (test code = 72135-4) < 0.001 0-0.300 [facility] CampusCHEST 2 HIFES6202-14-20 21:05:00 [place] [address] Patient Name: REY CARLSON MR #: [id number] : 1985 Age/Sex: 33/M Req #: [id number] Adm Physician: Ordered by: KISHOR MARLEY [employer] INTEGRATION ENGINEER Report #: [id number] Location: ER Room/Bed: Procedure: [id number] DX/CHEST 2 VIEWS Exam Date: 04/27/19 Exam Time: 204 0 REPORT STATUS: Signed EXAM: C HEST 2 VIEWS DATE: 04/27/2019 8:25 PM INDICATION: Cough ORDER PLACED BY [id number] Y COMPARISON: Chest x-ray, 02/16/2018 FINDINGS: Lines and tubes: None Heart size normal. No focal pulmonary opacity, pleural effusion or pneumothorax. Upper abdomen unremark able. No acute bony abnormality. IMPRESSION: No evidence for acute diseas e. Signed by: Dr. Genaro Rivers M.D. on 04/27/2019 9:07 PM Dictated By: GENARO RIVERS MD 12 Transcribed By: LAINEY on 04/27/192106 COPY TO: KISHOR MARLEY [employer] INTEGRATION ENGINEER CT ABDOMEN/PELVIS [id number] 18:42:00 [place] [address] Patient Name: REY CARLSON MR #: [id number] : 1985 Age/Sex: 32/M Req #: [id number] Adm Physician: Ordered by: KISHOR MARLEY [employer] INTEGRATION ENGINEER Report #: [id number] Location: ER Room/Bed: Procedure: [id number] CT/CT ABDOMEN/PELVIS WO E xam Date: 02/16/18 Exam Time: 5 REPORT STATU S: Signed EXAMINATION: CT of the abdomen and pelvis without contrast. T ECHNIQUE: Spiral CT images of the abdomen and pelvis were performed from the l michele bases to the lesser trochanters. No intravenous contrast was given due to history of iodine allergy. Oral dilute Gastrografin was given. Coronal and sa gittal reformatted images were obtained. COMPARISON: None available. C LINICAL HISTORY:Right upper quadrant mid abdominal pain for 5 weeks DI SCUSSION: ABSENCE OF INTRAVENOUS CONTRAST DECREASES SENSITIVITY FOR DETECTION OF FOCAL LESIONS AND VASCULAR PATHOLOGY. ABDOMEN/PELVIS: LOWER THORAX: Unremarkable. HEPATOBILIARY: No focal hepatic lesions. No intra or extra hepatic biliary ductal dilation. GALLBLADDER: No radio-opaque stones or s ludge. No wall thickening. SPLEEN: Mild splenomegaly, measuring 13.9 cm in AP diameter PANCREAS: No focal masses or ductal dilatation. No peripancrea tic inflammatory changes, free fluid or fluid collections ADRENALS: No ad renal nodules. KIDNEYS/URETERS: No hydronephrosis, renal or ureteral stones , or contour abnormalities. No significant perinephric stranding.. PELVIC ORGANS/BLADDER: Bladder is unremarkable. No wall thickening, focal lesion or bladder calculi. Multiple pelvic phleboliths. Prostate and seminal vesicles ar e unremarkable. PERITONEUM/RETROPERITONEUM: No free air or fluid. LYMP H NODES: No intra-abdominal,retroperitoneal, pelvic or inguinal lymphadenopath y. VESSELS: Unremarkable for noncontrast exam. GI TRACT: No bowel dila tion or evidence of obstruction. No pericolonic inflammatory changes. Appendix is identified and normal in caliber. BONES AND SOFT TISSUES: No aggressive lytic lesions. Soft tissues are unremarkable. IMPRESSION: 1. No acute abdominopelvic abnormalities. 2. Mild splenomegaly. Signed by: Dr. Nina Chopra M.D. on 02/16/2018 6:47 PM Dictated By: DONG CHOPRA MD 46 Transcribed By: LAINEY on 02/16/181846 COPY TO: KISHOR [employer] INTEGRATION ENGINEER CHEST 2 [id number] 18:41:00 [place] [address] Patient Name: REY CARLSON MR #: [id number] : 1985 Age/Sex: 32/M Req #: [id number] Adm Physician: Ordered by: KISHOR MARLEY NP Report #: [id number] Location: ER Room/Bed: Procedure: [id number] DX/CHEST 2 VIEWS Exam Silvio e: 02/16/18 Exam Time: 1818 REPORT STATUS: Sign ed EXAMINATION: PA and lateral views of the chest. COMPARISON: None CLINICAL HISTORY: Stomach pain, low blood pressure DISCUSSION: Lines/tubes: None. Lungs: The lungs are well inflated and clear. There is no evidence of pneumonia or pulmonary edema. Pleura: There is no ple ural effusion or pneumothorax. Heart and mediastinum: Cardiomediastinal si lhouette is unremarkable. Pulmonary vasculature is normal. Bones and s oft tissues: No acute bony abnormalities. IMPRESSION: No acute cardio pulmonary abnormalities. Signed by: Dr. Dong Chopra M.D. on 02/16/2018 6:42 PM Dictated By: DONG CHOPRA MD Electronically Sign ed By: DONG CHOPRA MD on 02/16/18 1842 Transcribed By: LAINEY on 02/16/18 1 842 COPY TO: [employer] Urine [id number] 17:35:00* Test Item Value Reference Range Interpretation Comments Urine WBC (test code = 5821-4) NONE 0-5 [facility] [id number] 17:35:00* Test Item Value Reference Range Interpretation Comments Urine RBC (test code = 43882-3) NONE 0-5 [facility] Cazmxwae7324-20-05 17:35:00* Test Item Value Reference Range Interpretation Comments Urine Bacteria (test code = 08450-3) NONE NONE [facility] Epithelial Vauwl5166-39-38 17:35:00 * Test Item Value Reference Range Interpretation Comments Urine Epithelial Cells (test code = 96253-3) NONE NONE [facility] [id number] 17:35:00* Test Item Value Reference Range Interpretation Comments Urine WBC (test code = 5821-4) NONE 0-5 [facility] [id number] 17:35:00* Test Item Value Reference Range Interpretation Comments Urine RBC (test code = 95910-1) NONE 0-5 [facility] Xhpekmyx2357-70-71 17:35:00* Test Item Value Reference Range Interpretation Comments Urine Bacteria (test code = 00707-7) NONE NONE [facility] Epithelial Bahwe2782-58-79 17:35:00 * Test Item Value Reference Range Interpretation Comments Urine Epithelial Cells (test code = 26223-7) NONE NONE [facility] Dgvfb1121-42-25 17:26:00* Test Item Value Reference Range Interpretation Comments Urine Color (test code = 5778-6) YELLOW YELLOW [facility] Xuryame3818-70-99 17:26:00* Test Item Value Reference Range Interpretation Comments Urine Clarity (test code = 85823-2) CLEAR CLEAR [facility] Specific Jssrdzy5289-71-42 17:26:00 * Test Item Value Reference Range Interpretation Comments Urine Specific Platter (test code = 5811-5) 1.005 1.010-1.02 5 L [facility] [id number] 17:26:00* Test Item Value Reference Range Interpretation Comments Urine pH (test code = 91920-3) 7 5-7 [facility] Leukocyte Gklklgjj9516-59-52 17:26:00* Test Item Value Reference Range Interpretation Comments Urine Leukocyte Esterase (test code = 5799-2) NEGATIVE NEGATIVE [facility] Ahdoctx8530-71-74 17:26:00* Test Item Value Reference Range Interpretation Comments Urine Nitrite (test code = 85052-5) NEGATIVE NEGATIVE [facility] Uwogujq9062-00-78 17:26:00* Test Item Value Reference Range Interpretation Comments Urine Protein (test code = 5804-0) NEGATIVE NEGATIVE [facility] Glucose (UA)2018-02-16 17:26:00* Test Item Value Reference Range Interpretation Comments Urine Glucose (UA) (test code = 2349-9) NEGATIVE NEGATIVE [facility] Augyzyk1049-39-50 17:26:00* Test Item Value Reference Range Interpretation Comments Urine Ketones (test code = 56389-4) NEGATIVE NEGATIVE [facility] Raktibfzpcaw1308-29-82 17:26:00* Test Item Value Reference Range Interpretation Comments Urine Urobilinogen (test code = 42590-0) 0.2 0.2-1 [facility] Jlmzchgfj7188-52-01 17:26:00* Test Item Value Reference Range Interpretation Comments Urine Bilirubin (test code = 1978-6) NEGATIVE NEGATIVE [facility] Yqtfi0800-14-08 17:26:00* Test Item Value Reference Range Interpretation Comments Urine Blood (test code = 50827-8) NEGATIVE NEGATIVE [facility] Zbkfc5184-89-18 17:26:00* Test Item Value Reference Range Interpretation Comments Urine Color (test code = 5778-6) YELLOW YELLOW [facility] Wshljnv9812-53-44 17:26:00* Test Item Value Reference Range Interpretation Comments Urine Clarity (test code = 34836-6) CLEAR CLEAR [facility] Specific Atolydc7342-96-26 17:26:00 * Test Item Value Reference Range Interpretation Comments Urine Specific Platter (test code = 5811-5) 1.005 1.010-1.02 5 L [facility] [id number] 17:26:00* Test Item Value Reference Range Interpretation Comments Urine pH (test code = 69577-2) 7 5-7 [facility] Leukocyte Symhcgof8681-53-94 17:26:00* Test Item Value Reference Range Interpretation Comments Urine Leukocyte Esterase (test code = 5799-2) NEGATIVE NEGATIVE [facility] Aveyunt5250-66-52 17:26:00* Test Item Value Reference Range Interpretation Comments Urine Nitrite (test code = 15047-8) NEGATIVE NEGATIVE [facility] Expzezm1229-68-99 17:26:00* Test Item Value Reference Range Interpretation Comments Urine Protein (test code = 5804-0) NEGATIVE NEGATIVE [facility] Glucose (UA)2018-02-16 17:26:00* Test Item Value Reference Range Interpretation Comments Urine Glucose (UA) (test code = 2349-9) NEGATIVE NEGATIVE [facility] Jargjnl3267-21-79 17:26:00* Test Item Value Reference Range Interpretation Comments Urine Ketones (test code = 41768-3) NEGATIVE NEGATIVE [facility] Siyilqavydco5868-53-21 17:26:00* Test Item Value Reference Range Interpretation Comments Urine Urobilinogen (test code = 02522-4) 0.2 0.2-1 [facility] Gcpewbnnp5968-57-96 17:26:00* Test Item Value Reference Range Interpretation Comments Urine Bilirubin (test code = 1978-6) NEGATIVE NEGATIVE [facility] Mnetx0784-67-47 17:26:00* Test Item Value Reference Range Interpretation Comments Urine Blood (test code = 66567-3) NEGATIVE NEGATIVE [facility] Kqrxw6379-53-93 17:03:00* Test Item Value Reference Range Interpretation Comments Sodium Level (test code = 2951-2) 140 136-145 [facility]Potassium Yohkv6231-56-26 17:03:00* Test Item Value Reference Range Interpretation Comments Potassium Level (test code = 2823-3) 4.1 3.5-5.1 [facility] CampusChloride Jzcsv1010-32-29 17:03:00* Test Item Value Reference Range Interpretation Comments Chloride Level (test code = 2075-0) 105 98-107 [facility] CampusCarbon Dioxide Kyjtz8022-49-87 17:03:00* Test Item Value Reference Range Interpretation Comments Carbon Dioxide Level (test code = 2028-9) 27 22-29 [facility] CampusAnion Jyv9975-53-71 17:03:00* Test Item Value Reference Range Interpretation Comments Anion Gap (test code = 22734-0) 12.1 8-16 [facility] CampusBlood Urea Acwabbgi1889-58-80 17:03:00* Test Item Value Reference Range Interpretation Comments Blood Urea Nitrogen (test code = 3094-0) 5 7-26 L [facility] CampusCreatinine2018-09-11 17:03:00* Test Item Value Reference Range Interpretation Comments Creatinine (test code = 2160-0) 0.96 0.72-1.25 [facility] CampusBUN/Creatinine Ovbpf4353-47-91 17:03:00* Test Item Value Reference Range Interpretation Comments BUN/Creatinine Ratio (test code = 3097-3) 5 6-25 L [facility] CampusEstimat Glomerular Filtration Rate 2018-02-16 17:03:00* Test Item Value Reference Range Interpretation Comments Estimat Glomerular Filtration Rate (test code = 09601-9) 60- >60 Ranges were taken from the National Kidney Disease Education Program and the [facility] literature.Reference ranges:60 or greater: Womjwf91-97 ( for 3 consecutive months): Chronic kidney disease 15 or less: Kidney failureThe Hospitals of Providence Memorial CampusGlucose Zamde2867-74-32 17:03:00* Test Item Value Reference Range Interpretation Comments Glucose Level (test code = OWF9848) 108 74-118 [facility] CampusCalcium Vgnql1165-87-09 17:03:00* Test Item Value Reference Range Interpretation Comments Calcium Level (test code = 75139-5) 9.7 8.4-10.2 [facility] CampusTotal Qswbuzkhl4548-31-51 17:03:00* Test Item Value Reference Range Interpretation Comments Total Bilirubin (test code = 1975-2) 0.9 0.2-1.2 [facility] CampusAspartate Amino Transf (AST/SGOT) 2018-02-16 17:03:00* Test Item Value Reference Range Interpretation Comments Aspartate Amino Transf (AST/SGOT) (test code = Aspartate Amino Transf (AST/SGOT)) 23 5-34 [facility] CampusAlanine Aminotransferase (ALT/SGPT) 2018-02-16 17:03:00* Test Item Value Reference Range Interpretation Comments Alanine Aminotransferase (ALT/SGPT) (test code = 1742-6) 33 0-55 [facility] CampusTotal Wrvhaqp4466-83-71 17:03:00* Test Item Value Reference Range Interpretation Comments Total Protein (test code = 2885-2) 7.1 6.5-8.1 [facility] CampusAlbumin2018-09-11 17:03:00* Test Item Value Reference Range Interpretation Comments Albumin (test code = 1751-7) 4.4 3.5-5.0 [facility] CampusGlobulin2018-09-11 17:03:00* Test Item Value Reference Range Interpretation Comments Globulin (test code = 55582-5) 2.7 2.3-3.5 [facility] CampusAlbumin/Globulin Cjxek6707-39-78 17:03:00 * Test Item Value Reference Range Interpretation Comments Albumin/Globulin Ratio (test code = 1759-0) 1.6 0.8-2.0 [facility] CampusAlkaline Qdirrktepto6693-08-28 17:03:00* Test Item Value Reference Range Interpretation Comments Alkaline Phosphatase (test code = 6768-6) 62 40-150 [facility] CampusAmylase Vypdp0701-55-63 17:03:00* Test Item Value Reference Range Interpretation Comments Amylase Level (test code = 1798-8) 42 25-125 [facility] CampusLipase2018-09-11 17:03:00* Test Item Value Reference Range Interpretation Comments Lipase (test code = 3040-3) 62 8-78 [facility]odium Vxxxc4381-51-89 17:03:00* Test Item Value Reference Range Interpretation Comments Sodium Level (test code = 2951-2) 140 136-145 [facility] CampusPotassium Ypnxn9993-60-54 17:03:00* Test Item Value Reference Range Interpretation Comments Potassium Level (test code = 2823-3) 4.1 3.5-5.1 [facility] CampusChloride Xvqgt3597-26-38 17:03:00* Test Item Value Reference Range Interpretation Comments Chloride Level (test code = 2075-0) 105 98-107 [facility] CampusCarbon Dioxide Zzulr6218-09-95 17:03:00* Test Item Value Reference Range Interpretation Comments Carbon Dioxide Level (test code = 2028-9) 27 22-29 [facility] CampusAnion Dry6364-26-51 17:03:00* Test Item Value Reference Range Interpretation Comments Anion Gap (test code = 86629-5) 12.1 8-16 [facility] CampusBlood Urea Kvfqyfxh4108-43-09 17:03:00* Test Item Value Reference Range Interpretation Comments Blood Urea Nitrogen (test code = 3094-0) 5 7-26 L [facility] CampusCreatinine2018-09-11 17:03:00* Test Item Value Reference Range Interpretation Comments Creatinine (test code = 2160-0) 0.96 0.72-1.25 [facility] CampusBUN/Creatinine Aalau1481-87-86 17:03:00* Test Item Value Reference Range Interpretation Comments BUN/Creatinine Ratio (test code = 3097-3) 5 6-25 L [facility] CampusEstimat Glomerular Filtration Rate 2018-02-16 17:03:00* Test Item Value Reference Range Interpretation Comments Estimat Glomerular Filtration Rate (test code = 545623469) > 60 >60 Ranges were taken from the National Kidney Disease Education Program and the [facility] literature.Reference ranges:60 or greater: Ulyfjb80-64 ( for 3 consecutive months): Chronic kidney disease 15 or less: Kidney failureThe Hospitals of Providence Memorial CampusGlucose Amqnm3167-89-50 17:03:00* Test Item Value Reference Range Interpretation Comments Glucose Level (test code = WZF3063) 108 74-118 [facility] CampusCalcium Pkjny9759-15-62 17:03:00* Test Item Value Reference Range Interpretation Comments Calcium Level (test code = 02710-6) 9.7 8.4-10.2 [facility] CampusTotal Skwtdlphu3406-19-38 17:03:00* Test Item Value Reference Range Interpretation Comments Total Bilirubin (test code = 1975-2) 0.9 0.2-1.2 [facility] CampusAspartate Amino Transf (AST/SGOT) 2018-02-16 17:03:00* Test Item Value Reference Range Interpretation Comments Aspartate Amino Transf (AST/SGOT) (test code = Aspartate Amino Transf (AST/SGOT)) 23 5-34 [facility] CampusAlanine Aminotransferase (ALT/SGPT) 2018-02-16 17:03:00* Test Item Value Reference Range Interpretation Comments Alanine Aminotransferase (ALT/SGPT) (test code = 1742-6) 33 0-55 [facility] CampusTotal Rdgkkdl7359-71-51 17:03:00* Test Item Value Reference Range Interpretation Comments Total Protein (test code = 2885-2) 7.1 6.5-8.1 [facility] CampusAlbumin2018-09-11 17:03:00* Test Item Value Reference Range Interpretation Comments Albumin (test code = 1751-7) 4.4 3.5-5.0 [facility] CampusGlobulin2018-09-11 17:03:00* Test Item Value Reference Range Interpretation Comments Globulin (test code = 98090-1) 2.7 2.3-3.5 [facility] CampusAlbumin/Globulin Sfcpy1177-21-76 17:03:00 * Test Item Value Reference Range Interpretation Comments Albumin/Globulin Ratio (test code = 1759-0) 1.6 0.8-2.0 [facility] CampusAlkaline Dcfuipxvcmx0740-30-26 17:03:00* Test Item Value Reference Range Interpretation Comments Alkaline Phosphatase (test code = 6768-6) 62 40-150 [facility] CampusAmylase Zjwkr4996-23-01 17:03:00* Test Item Value Reference Range Interpretation Comments Amylase Level (test code = 1798-8) 42 25-125 [facility] CampusLipase2018-09-11 17:03:00* Test Item Value Reference Range Interpretation Comments Lipase (test code = 3040-3) 62 8-78 [facility] CampusWhite Blood Xkskg4764-36-63 16:49:00* Test Item Value Reference Range Interpretation Comments White Blood Count (test code = 6690-2) 7.56 4.8-10.8 [facility] CampusRed Blood Yygrw1720-05-67 16:49:00* Test Item Value Reference Range Interpretation Comments Red Blood Count (test code = 789-8) 4.97 4.3-5.7 [facility] CampusHemoglobin2018-09-11 16:49:00* Test Item Value Reference Range Interpretation Comments Hemoglobin (test code = 77086-1) 15.6 14.0-18.0 [facility] CampusHematocrit2018-09-11 16:49:00* Test Item Value Reference Range Interpretation Comments Hematocrit (test code = 4544-3) 43.8 38.2-49.6 [facility] CampusMean Corpuscular Rjxxml3460-61-81 16:49:00* Test Item Value Reference Range Interpretation Comments Mean Corpuscular Volume (test code = 787-2) 88.1 81-99 [facility] CampusMean Corpuscular Kidqwopvqj3641-62-96 16:49:00* Test Item Value Reference Range Interpretation Comments Mean Corpuscular Hemoglobin (test code = 785-6) 31.4 28-32 [facility] Hem[facility] Concent 2018-02-16 16:49:00* Test Item Value Reference Range Interpretation Comments Mean Corpuscular Hemoglobin Concent (test code = 786-4) 35.6 31-35 H [facility] CampusRed Cell Distribution Mjgxb4533-71-86 16:49:00* Test Item Value Reference Range Interpretation Comments Red Cell Distribution Width (test code = 46461-6) 13.0 11.7 -14.4 [facility] CampusPlatelet Kdrfw2419-72-64 16:49:00* Test Item Value Reference Range Interpretation Comments Platelet Count (test code = 777-3) 187 140-360 [facility] CampusNeutrophils (%) (Auto)2018-02-16 16:49:00 * Test Item Value Reference Range Interpretation Comments Neutrophils (%) (Auto) (test code = 71423-3) 68.2 38.7-80.0 [facility] CampusLymphocytes (%) (Auto)2018-02-16 16:49:00 * Test Item Value Reference Range Interpretation Comments Lymphocytes (%) (Auto) (test code = 736-9) 22.2 18.0-39.1 [facility] CampusMonocytes (%) (Auto)2018-02-16 16:49:00* Test Item Value Reference Range Interpretation Comments Monocytes (%) (Auto) (test code = 5905-5) 7.1 4.4-11.3 [facility] CampusEosinophils (%) (Auto)2018-02-16 16:49:00 * Test Item Value Reference Range Interpretation Comments Eosinophils (%) (Auto) (test code = 713-8) 1.7 0.0-6.0 [facility] CampusBasophils (%) (Auto)2018-02-16 16:49:00* Test Item Value Reference Range Interpretation Comments Basophils (%) (Auto) (test code = 706-2) 0.7 0.0-1.0 [facility] CampusIM GRANULOCYTES %2018-02-16 16:49:00* Test Item Value Reference Range Interpretation Comments IM GRANULOCYTES % (test code = IM GRANULOCYTES %) 0.1 0.0- 1.0 [facility] CampusNeutrophils # (Auto)2018-02-16 16:49:00* Test Item Value Reference Range Interpretation Comments Neutrophils # (Auto) (test code = 751-8) 5.2 2.1-6.9 [facility] CampusLymphocytes # (Auto)2018-02-16 16:49:00* Test Item Value Reference Range Interpretation Comments Lymphocytes # (Auto) (test code = 61522-5) 1.7 1.0-3.2 [facility] CampusMonocytes # (Auto)2018-02-16 16:49:00* Test Item Value Reference Range Interpretation Comments Monocytes # (Auto) (test code = 742-7) 0.5 0.2-0.8 [facility] CampusEosinophils # (Auto)2018-02-16 16:49:00* Test Item Value Reference Range Interpretation Comments Eosinophils # (Auto) (test code = 711-2) 0.1 0.0-0.4 [facility] CampusBasophils # (Auto)2018-02-16 16:49:00* Test Item Value Reference Range Interpretation Comments Basophils # (Auto) (test code = 704-7) 0.1 0.0-0.1 [facility] CampusAbsolute Immature Granulocyte (auto 2018-02-16 16:49:00* Test Item Value Reference Range Interpretation Comments Absolute Immature Granulocyte (auto (gerardo t code = Absolute Immature Granulocyte (auto) 0.01 0-0.1 [facility] CampusWhite Blood Svhsm2498-08-77 16:49:00* Test Item Value Reference Range Interpretation Comments White Blood Count (test code = 6690-2) 7.56 4.8-10.8 [facility] CampusRed Blood Cztik0538-20-48 16:49:00* Test Item Value Reference Range Interpretation Comments Red Blood Count (test code = 789-8) 4.97 4.3-5.7 [facility] CampusHemoglobin2018-09-11 16:49:00* Test Item Value Reference Range Interpretation Comments Hemoglobin (test code = 86159-8) 15.6 14.0-18.0 [facility] CampusHematocrit2018-09-11 16:49:00* Test Item Value Reference Range Interpretation Comments Hematocrit (test code = 4544-3) 43.8 38.2-49.6 [facility] CampusMean Corpuscular Fjitmk3520-73-81 16:49:00* Test Item Value Reference Range Interpretation Comments Mean Corpuscular Volume (test code = 787-2) 88.1 81-99 [facility] CampusMean Corpuscular Zvrgyulcrs1820-35-89 16:49:00* Test Item Value Reference Range Interpretation Comments Mean Corpuscular Hemoglobin (test code = 785-6) 31.4 28-32 [facility] CampusMean Corpuscular Hemoglobin Concent 2018-02-16 16:49:00* Test Item Value Reference Range Interpretation Comments Mean Corpuscular Hemoglobin Concent (test code = 786-4) 35.6 31-35 H [facility] CampusRed Cell Distribution Ckeiu9415-30-92 16:49:00* Test Item Value Reference Range Interpretation Comments Red Cell Distribution Width (test code = 33471-4) 13.0 11.7 -14.4 [facility] CampusPlatelet Sprgv0747-46-34 16:49:00* Test Item Value Reference Range Interpretation Comments Platelet Count (test code = 777-3) 187 140-360 [facility] CampusNeutrophils (%) (Auto)2018-02-16 16:49:00 * Test Item Value Reference Range Interpretation Comments Neutrophils (%) (Auto) (test code = 78764-3) 68.2 38.7-80.0 [facility] CampusLymphocytes (%) (Auto)2018-02-16 16:49:00 * Test Item Value Reference Range Interpretation Comments Lymphocytes (%) (Auto) (test code = 736-9) 22.2 18.0-39.1 [facility] CampusMonocytes (%) (Auto)2018-02-16 16:49:00* Test Item Value Reference Range Interpretation Comments Monocytes (%) (Auto) (test code = 5905-5) 7.1 4.4-11.3 [facility] CampusEosinophils (%) (Auto)2018-02-16 16:49:00 * Test Item Value Reference Range Interpretation Comments Eosinophils (%) (Auto) (test code = 713-8) 1.7 0.0-6.0 [facility] CampusBasophils (%) (Auto)2018-02-16 16:49:00* Test Item Value Reference Range Interpretation Comments Basophils (%) (Auto) (test code = 706-2) 0.7 0.0-1.0 [facility] CampusIM GRANULOCYTES %2018-02-16 16:49:00* Test Item Value Reference Range Interpretation Comments IM GRANULOCYTES % (test code = IM GRANULOCYTES %) 0.1 0.0- 1.0 [facility] CampusNeutrophils # (Auto)2018-02-16 16:49:00* Test Item Value Reference Range Interpretation Comments Neutrophils # (Auto) (test code = 751-8) 5.2 2.1-6.9 [facility] CampusLymphocytes # (Auto)2018-02-16 16:49:00* Test Item Value Reference Range Interpretation Comments Lymphocytes # (Auto) (test code = 37218-9) 1.7 1.0-3.2 [facility] CampusMonocytes # (Auto)2018-02-16 16:49:00* Test Item Value Reference Range Interpretation Comments Monocytes # (Auto) (test code = 742-7) 0.5 0.2-0.8 [facility] CampusEosinophils # (Auto)2018-02-16 16:49:00* Test Item Value Reference Range Interpretation Comments Eosinophils # (Auto) (test code = 711-2) 0.1 0.0-0.4 [facility] CampusBasophils # (Auto)2018-02-16 16:49:00* Test Item Value Reference Range Interpretation Comments Basophils # (Auto) (test code = 704-7) 0.1 0.0-0.1 [facility] CampusAbsolute Immature Granulocyte (auto 2018-02-16 16:49:00* Test Item Value Reference Range Interpretation Comments Absolute Immature Granulocyte (auto (gerardo t code = Absolute Immature Granulocyte (auto) 0.01 0-0.1 [facility]
== END 2020-02-24 03:30 | disposition home or self-care (01) ==
LOC: ER 01:33
DX: R07.89 Other chest pain (principal); R06.02 Shortness of breath; T40.7X5A Adverse effect of cannabis (derivatives), initial encounter
CPT/HCPCS: 36415; 71045; 80053; 80307; 81001; 82550; 82553; 84484; 85025; 85379; 93005; 99283; J7030